=== PATIENT | male | born 1945 | race Caucasian/White ===

== ENCOUNTER 2019-08-21 01:57 | Outpatient (CLI) | payer MEDICARE, BC, SELFPAY ==
[2019-08-21 11:54] LABS: HCT 41.8 % (40.0-50.0); HGB 13.9 g/dL (13.5-17.5); Mean Corp. HGB Concentration 33.3 g/dL (32.0-36.0); Mean Corpuscular Hemoglobin 32.5 pg (27.0-33.0); Mean Corpuscular Volume 97.7 fL (80-95); Mean Platelet Volume 10.6 fL (8.0-11.0); Platelet Count 236 x1000/uL (130-400); RBC 4.28 m/cumm (4.50-6.00); White Blood Cell Count 7.67 k/cumm (4.4-10.8)
[2019-08-21 12:21] LABS: ALT 44 U/L (16-63); AST 25 U/L (15-37); Albumin 3.7 g/dL (3.4-5.0); Alkaline Phosphatase 69 U/L (46-116); Anion Gap 8.2 mmol/L (3-11); BUN 22 mg/dL (7-18); Bilirubin, Total 0.8 mg/dL (0.2-1.0); CO2 26.8 mmol/L (21.0-32.0); CREATININE 1.28 mg/dL (0.70-1.30); Calcium 8.9 mg/dL (8.5-10.1); Calculated LDL 160 mg/dL; Chloride 106 mmol/L (98-107); Cholesterol 223 mg/dL (50-200); Estimated GFR 54.79 (mL/min/1.73m2); Glucose 102 mg/dL (70-100); HDL Cholesterol 40 mg/dL (40-60); Potassium 4.6 mmol/L (3.5-5.1); Sodium 141 mmol/L (136-145); Triglyceride 115 mg/dL (30-150)
== END 2019-08-21 02:17 ==
PROVIDERS: PCP Family Medicine; Visit Provider Family Medicine
DX: I10 Essential (primary) hypertension (principal); E78.5 Hyperlipidemia, unspecified
CPT/HCPCS: 36415; 80053; 80061; 85027

== ENCOUNTER 2019-12-28 16:40 | Outpatient (CLI) | payer MEDICARE, BC, SELFPAY ==
--- NOTE | 2019-12-28 15:31 | DI.RAD_ITS ---
EXAM: XR CHEST 2V PA AND LATERAL INDICATION: COUGH R05. COMPARISON: No exams were available for comparison TECHNIQUE: 2D digital imaging was performed. FINDINGS: The lungs are not well inflated on the PA view but appear clear. The heart size is normal. No infil trate or effusion is seen. IMPRESSION: Negative chest x-ray DATA REPOSITORY: RADIATION DOSE DELIVERED:
== END 2019-12-28 17:00 ==
PROVIDERS: PCP Family Medicine; Visit Provider Internal Medicine
DX: R05 Cough (principal)
CPT/HCPCS: 71046

== ENCOUNTER 2020-08-15 04:08 | Outpatient (CLI) | payer MEDICARE, BC, SELFPAY ==
[2020-08-15 13:52] LABS: ALT 42 U/L (16-63); AST 28 U/L (15-37); Albumin 3.9 g/dL (3.4-5.0); Alkaline Phosphatase 63 U/L (46-116); Anion Gap 11.1 mmol/L (3-11); BUN 23 mg/dL (7-18); Bilirubin, Total 0.4 mg/dL (0.2-1.0); CO2 26.9 mmol/L (21.0-32.0); CREATININE 1.34 mg/dL (0.70-1.30); Calcium 9.3 mg/dL (8.5-10.1); Calculated LDL 181 mg/dL (<100); Chloride 105 mmol/L (98-107); Cholesterol 248 mg/dL (<200); Estimated GFR 51.83 (mL/min/1.73m2); Glucose 97 mg/dL (74-106); HDL Cholesterol 39 mg/dL (40-60); Potassium 4.6 mmol/L (3.5-5.1); Sodium 143 mmol/L (136-145); Total Protein 7.1 g/dL (6.4-8.2); Triglyceride 143 mg/dL (<150)
== END 2020-08-15 04:28 ==
PROVIDERS: PCP Family Medicine; Visit Provider Family Medicine
DX: E78.5 Hyperlipidemia, unspecified (principal); I10 Essential (primary) hypertension
CPT/HCPCS: 36415; 80053; 80061

== ENCOUNTER → 2020-10-10 07:50 | Outpatient (BNVA) | payer MEDICARE, BC, SELFPAY | PROVIDERS: PCP Family Medicine; Referring Provider Family Medicine; Visit Provider Student in an Organized Health Care Education/Training Program | DX: M65.322 Trigger finger, left index finger (principal) | CPT/HCPCS: 99203; 99214 ==

== ENCOUNTER 2020-10-26 05:59 | Day surgery (SDC) | payer MEDICARE, BC, SELFPAY ==
[2020-10-26 06:14] VITALS: BP 157/99; PULSE 89; RESP 16; TEMP 36.5; O2SAT 99
--- NOTE | 2020-10-26 07:18 | W.PM.DSUDISC ---
Discharge Plan Disposition Patient Disposition: HOME Condition: Good Discharge Details Reason For Visit: Left Index Finger Trigger Finger Attending Provider: John Anderson Primary Care Provider: Calos Mahoney Home Meds and New Rx's Prescriptions: No Action Shingrix gE Antigen Component 50 mcg suspension for reconstitution 50 mcg IM ONCE Qty: 1 RF: 0 omeprazole magnesium [Prilosec OTC] 20 mg tablet,delayed release (DR/EC) 20 mg PO DAILY Qty: 90 RF: 4 lisinopril [Zestril] 10 mg tablet 10 mg PO DAILY Qty: 90 RF: 4 desoximetasone [Topicort] 0.25 % cream 1 applic topical DAILY PRN (Reason: psoriasis) Qty: 60 RF: 3 ibuprofen 200 MG capsule 200 mg PO PRN RF: 0 Discharge Instructions Additional Instructions: You may take Tylenol (up to 3000mg total in one day) and Ibuprofen (up to 1800mg total in one day)as needed for pain. You may also apply ice for pain relief. Stand Alone Forms: Monica Colmenares Finger Release Referrals: John Anderson MD [ [facility] STAFF PHYSICIAN] - Activity:: Elevate Remove Dressings/Wound Care:: 48 hours Shower/Bathe:: 48 hours Diet:: As Tolerated Discharge Orders Discharge Orders: Discharge Order (Routine); Ordered 10/26/20 Ordered By: John Anderson DS: Diagnosis Discharge Diagnosis (1) Trigger finger, left index finger: Status: Acute
[2020-10-26] MEDS: Sodium Bicarbonate 50 MEQ/50 ML VIAL (07:34)
--- NOTE | 2020-10-26 09:40 | W.PM.OP ---
Date of service: 10/26/20 Time of Service: 07:40 Operative Note Operative Note DATE OF PROCEDURE: 10/26/20 PRE-OP DIAGNOSIS: Left Index Finger Trigger Finger POST-OP DIAGNOSIS: same PROCEDURE: Trigger Finger Release - Left Index Finger SURGEON: John Anderson ANESTHESIA: local PATHOLOGY: none sent COMPLICATIONS: None Patient was transported to: same day Patient's condition: stable Indications: I have seen Frank in clinic for symptoms of a trigger finger. The catching, clicking, locking, and pain limited function. The diagnosis of trigger finger was evident. The symptoms had not responded to conservative measures. I discussed trigger finger release with the patient. I reviewed the risks of the procedure to include, but not limited to, bleeding, infection, pain, stiffness, incomplete release, damage to nerves or vessels, continued catching, recurrence. Despite these risks, the patient elected to proceed. Findings: There was a tightened A1 niecy which was released. The flexor tendons were inspected and the patient was able to move the finger without any catching, clicking, or locking. Procedure Description: Frank was greeted in the preoperative holding area where the correct side was identified and marked. The consent was reviewed with the patient and signed. All questions were answered. Frank was taken back to the operating room. The patient was placed into the supine position on the operating room table with the left arm on an arm board. All bony prominences were well padded. No prophylactic antibiotics were administered since this was a clean, elective hand surgical case. The left arm was then prepped with Chloraprep and draped in a standard fashion with stockinette and extremity drape. A timeout to confirm correct identity, side and site, procedure, allergies, anesthesia, and medical concerns was performed. The surgical site was marked as a longitudinal incision directly over the A1 niecy of the involved digit. This was confirmed with palpation during finger flexion. This area, overlying the metacarpal head, was then anesthetized with 1% Lidocaine. The patient tolerated this well and once the anesthetic had setup, the procedure began. A longitudinal incision was made through skin only, approximately 1cm. The deep tissues were dissected bluntly. Once the A1 niecy and flexor tendons were identified the soft tissue including neurovascular structures were retracted medially and laterally. There were no crossing structures over the A1 niecy. The proximal edge of the niecy was identified and the niecy was incised with tenotomy scissors. There was a release of the tendons once this was fully released. The tendons were then removed from the wound and inspected. Excess synovium was resected. The tendons were then returned and the patient was asked to move the finger into deep flexion and back to extension. There was no recreation of the pre-operative symptoms. The hand was then once more inspected for any A0 niecy or area of possible constriction. The wound was then irrigated and the skin was closed with a 4-0 Nylon. This was dressed with gauze and a Conform dressing. The patient tolerated the procedure well and was returned to the Same Day Surgery area in a stable condition suffering no known complication.
== END 2020-10-26 08:05 | disposition home or self-care (01) ==
PROVIDERS: PCP Family Medicine; Visit Provider Student in an Organized Health Care Education/Training Program
PROC: (CPT 26055; principal; 2020-10-26 07:30)
DX: M65.322 Trigger finger, left index finger (principal)
CPT/HCPCS: 26055

== ENCOUNTER 2021-08-25 09:02 | Outpatient (CLI) | payer MEDICARE, BC, SELFPAY ==
[2021-08-25 13:14] LABS: Anion Gap 7.1 mmol/L (3-11); BUN 20 mg/dL (7-18); CO2 29.9 mmol/L (21.0-32.0); CREATININE 1.3 mg/dL (0.70-1.30); Chloride 106 mmol/L (98-107); Estimated GFR 53.53 (mL/min/1.73m2); Glucose 85 mg/dL (74-106); Potassium 4.9 mmol/L (3.5-5.1); Sodium 143 mmol/L (136-145)
== END 2021-08-25 09:03 | disposition home or self-care (01) ==
LOC: LOS 09:02
PROVIDERS: PCP Family Medicine; Visit Provider Family Medicine
DX: I10 Essential (primary) hypertension (principal)
CPT/HCPCS: 36415; 80048

== ENCOUNTER 2022-09-03 03:06 | Outpatient (CLI) | payer MEDICARE, BC, SELFPAY ==
[2022-09-03 11:05] LABS: Anion Gap 8.1 mmol/L (3-11); BUN 19 mg/dL (7-18); CO2 27.9 mmol/L (21.0-32.0); CREATININE 1.3 mg/dL (0.70-1.30); Calcium 9.1 mg/dL (8.5-10.1); Calculated LDL 166 mg/dL (<100); Chloride 103 mmol/L (98-107); Cholesterol 231 mg/dL (<200); Estimated GFR 56.23 (mL/min/1.73m2); Glucose 89 mg/dL (74-106); HDL Cholesterol 42 mg/dL (40-60); Potassium 4.2 mmol/L (3.5-5.1); Sodium 139 mmol/L (136-145); Triglyceride 118 mg/dL (<150)
== END 2022-09-03 03:07 | disposition home or self-care (01) ==
LOC: LOS 03:06
PROVIDERS: PCP Family Medicine; Visit Provider Family Medicine
DX: I10 Essential (primary) hypertension (principal); E78.5 Hyperlipidemia, unspecified; Z13.6 Encounter for screening for cardiovascular disorders
CPT/HCPCS: 36415; 80048; 80061

== ENCOUNTER 2022-11-01 11:02 | Outpatient (CLI) | payer MEDICARE, BC, SELFPAY ==
--- NOTE | 2022-11-01 10:30 | DI.RAD_ITS ---
Exam(s) XR HAND RT COMPLETE EXAM: XR HAND RT COMPLETE CLINICAL HISTORY: limited motion and weakness of thumb. TECHNIQUE: 2D digital imaging was performed. COMPARISON: No exams were available for comparison FINDINGS: 3 views No evidence of acute fracture. Main finding here is at the DIP joint 2nd-finger where there is asymm etric lateral joint space narrowing mild subluxation. Other DIP joints appear unremarkable. Degener ative subarticular cyst is noted in lateral base of the middle phalanx of the 3rd-middle finger. Oth er PIP joints appear unremarkable as do the joints of the thumb including the 1st carpometacarpal waleska nt. Metacarpophalangeal joints appear unremarkable. IMPRESSION: Degenerative changes at the DIP joint of 2nd-index finger. DATA REPOSITORY: RADIATION DOSE DELIVERED:
== END 2022-11-01 11:03 | disposition home or self-care (01) ==
LOC: DIORS 11:02
PROVIDERS: PCP Family Medicine; Referring Provider Family Medicine; Visit Provider Student in an Organized Health Care Education/Training Program
DX: R29.898 Other symptoms and signs involving the musculoskeletal system (principal)
CPT/HCPCS: 99213; 73130

== ENCOUNTER → 2022-11-19 13:07 | Outpatient (BNVA) | payer MEDICARE, BC, SELFPAY | PROVIDERS: PCP Family Medicine; Referring Provider Student in an Organized Health Care Education/Training Program; Visit Provider Nurse Practitioner Adult Health | DX: G62.9 Polyneuropathy, unspecified (principal); G56.03 Carpal tunnel syndrome, bilateral upper limbs; G56.23 Lesion of ulnar nerve, bilateral upper limbs | CPT/HCPCS: 95885; 95911; 99203; 99214 ==

== ENCOUNTER 2022-11-23 01:06 | Outpatient (CLI) | payer MEDICARE, BC, SELFPAY ==
[2022-11-23 12:31] LABS: Hemoglobin A1C 5.8 % (<5.7)
[2022-11-23 13:01] LABS: TSH 2.14 uIU/mL (0.36-3.74); Vitamin B12 236 pg/mL (193-986)
[2022-11-26 16:39] LABS: Albumin g/dL 4.1 g/dL (3.6-5.2)
== END 2022-11-23 01:07 | disposition home or self-care (01) ==
LOC: LOS 01:07
PROVIDERS: PCP Family Medicine; Visit Provider Nurse Practitioner Adult Health
DX: I10 Essential (primary) hypertension (principal); G62.9 Polyneuropathy, unspecified; R20.0 Anesthesia of skin; R79.89 Other specified abnormal findings of blood chemistry
CPT/HCPCS: 36415; 82607; 83036; 84165; 84443

== ENCOUNTER → 2022-12-03 10:25 | Outpatient (BNVA) | payer MEDICARE, BC, SELFPAY | PROVIDERS: PCP Family Medicine; Referring Provider Family Medicine; Visit Provider Student in an Organized Health Care Education/Training Program | DX: G56.03 Carpal tunnel syndrome, bilateral upper limbs (principal); G56.23 Lesion of ulnar nerve, bilateral upper limbs; R29.898 Other symptoms and signs involving the musculoskeletal system | CPT/HCPCS: 99213 ==

== ENCOUNTER 2022-12-13 00:15 | Outpatient (CLI) | payer MEDICARE, BC, SELFPAY ==
--- NOTE | 2022-12-13 07:30 | DI.MRI_ITS ---
Exam(s) MR CERVICAL SPINE WO EXAM: MR CERVICAL SPINE WO CLINICAL HISTORY: bilateral hand atrophy and weakness, abnormal EMG,r94.131 TECHNIQUE: Multiplanar multisequence MRI of the cervical spine was performed without intravenous con trast. COMPARISON: No exams were available for comparison FINDINGS: CERVICOMEDULLARY JUNCTION: Intact with no evidence of cerebellar tonsillar ectopia. No obvious abnor mality of the odontoid process. No evidence of Chiari 1 malformation. CERVICAL SPINAL CORD: There is no abnormal signal in the cervical spinal cord and no evidence of foca l cord atrophy nor focal cord swelling. OSSEOUS:There is straightening with slight reversal of the normal curvature of the cervical spine. N o significant osseous lesions. No fractures. INDIVIDUAL LEVELS: C2-3: No disc herniation nor central canal stenosis. No foraminal stenosis. No facet arthropathy. C3-4: There is broad symmetrical annular bulging and mild posterior bony ridging. This effaces the a nterior aspect of the thecal sac with some flattening of the cervical cord. The AP measurement of th e canal at this level is 7 millimeters. There is mild-moderate central canal stenosis. There is no facet arthropathy on the right side. There is moderate facet arthropathy on the left side. There is significant left-sided foraminal stenosis. Minimal right-sided narrowing. C4-5: Mild decreased disc height. There is mild annular bulging. There is a superimposed left parac entral disc herniation which extends posteriorly 4 millimeters and is approximately 8 millimeters wid e. This significantly indents the thecal sac and spinal cord. This results in central canal stenosi s. AP measurement of the canal at this level is 6 millimeters. There is no abnormal signal in the s esau cord.Facet joints at this level to exhibit no significant findings in the right side and modera te degenerative changes on the left side. There is moderate foraminal stenosis on the left side. Mi ld foraminal stenosis on the right side C5-6: This level exhibits chronic advanced disc space narrowing. Anterior osseous lipping. Bilatera l Luschka joint osteophytes. Broad but relatively symmetrical annular bulging. This effaces the ant erior aspect of the thecal sac and there is some flattening of the spinal cord. AP measurement of th e canal at this level is 8 millimeters. There is mild-moderate facet arthropathy on both sides at th is level. Moderate bilateral foraminal stenosis. C6-7: This level exhibits normal disc height and preserved hydration signal. There is no disc hernia tion nor central canal stenosis at this level. Central canal dimensions are lower normal. There is also no significant facet arthropathy at this level and there is no significant foraminal stenosis at this level. C7-T1: No disc herniation nor central canal stenosis. No facet arthropathy.No foraminal stenosis. IMPRESSION: 1. There are multilevel findings as discussed individually above. There is central spinal canal shari nosis at C3-4, C4-5, and C5-6 levels and there is a left paracentral disc protrusion at C4-5 level. Bilateral Luschka joint osteophytes noted at C 5-6. There is an element of multilevel asymmetric for aminal stenosis, this mostly related to asymmetric facet arthropathy. There are changes of left face t arthropathy on the left side at multiple levels with relatively normal appearing facet joints on th e right side at these levels. 2. No abnormal signal in the cervical spinal cord. No evidence of side syrinx. 3. There is straightening of the normal cervical curvature which is most probably related to chronic muscle spasm, given the above findings. DATA REPOSITORY:
== END 2022-12-13 00:35 ==
LOC: DI 00:16
PROVIDERS: PCP Family Medicine; Visit Provider Nurse Practitioner Adult Health
DX: M48.02 Spinal stenosis, cervical region (principal)
CPT/HCPCS: 72141

== ENCOUNTER → 2022-12-18 08:30 | Outpatient (BNVA) | payer MEDICARE, BC, SELFPAY | PROVIDERS: PCP Family Medicine; Referring Provider Family Medicine; Visit Provider Psychiatry & Neurology Neurology | DX: M48.02 Spinal stenosis, cervical region (principal); G56.03 Carpal tunnel syndrome, bilateral upper limbs; G56.23 Lesion of ulnar nerve, bilateral upper limbs; R29.898 Other symptoms and signs involving the musculoskeletal system; G62.9 Polyneuropathy, unspecified; E53.8 Deficiency of other specified B group vitamins | CPT/HCPCS: 99214 ==

== ENCOUNTER 2023-01-22 12:07 | Day surgery (SDC) | payer MEDICARE, BC, SELFPAY ==
[2023-01-22] VITALS (8 sets, daily range): BP systolic 94–143; BP diastolic 43–82; PULSE 70–81; RESP 16–19; TEMP 36.2–36.7; O2SAT 92–99; BMI 31.9
--- NOTE | 2023-01-22 09:23 | W.PM.DSUDISC ---
Date of service: 01/22/23 Time of Service: 09:28 Discharge Plan Disposition Patient Disposition: Home Condition: Good Discharge Details Reason For Visit: Right carpal and cubital tunnel syndromes Attending Provider: John Anderson Primary Care Provider: Jasmyne Castillo Home Meds and New Rx's Prescriptions: New acetaminophen 500 mg tablet 500 mg PO Q6H PRN (Reason: pain) Qty: 60 2RF ibuprofen 600 mg tablet 600 mg PO TID PRN (Reason: pain) Qty: 60 0RF hydrocodone-acetaminophen 5-325 mg tablet 1 tab PO Q6H PRN (Reason: severe pain) Qty: 6 0RF Rx Instructions: Take one tablet up to every 6 hours as needed for severe postoperative pain Continued ezetimibe [Zetia] 10 mg tablet 10 mg PO DAILY Qty: 90 3RF omeprazole 20 mg capsule,delayed release(DR/EC) 20 mg PO DAILY PRN cyanocobalamin (vitamin B-12) 1,000 mcg tablet 1,000 mcg PO DAILY lisinopril [Zestril] 10 mg tablet 10 mg PO DAILY Qty: 90 3RF Discontinued ibuprofen 200 MG capsule 200 mg PO PRN Discharge Instructions Additional Instructions: Carpal and Cubital Tunnel Decompression Discharge Instructions Activity: You should stay in the sling for the first 2 weeks. You may come out of the sling for gentle motion and hygiene but should largely remain in the sling to allow the incision site to heal. Gentle motion of the elbow, hand, wrist, and fingers is okay and encouraged after the first few days, but no repetitive activities nor heavy lifting. You may apply ice. Medications: - You should take Tylenol and Ibuprofen around the clock. - You have been prescribed Hydrocodone for breakthrough pain. Dressings: - The initial surgical dressing should stay in place for 3 days. It may then be removed and kept clean and dry. You should cover with a light gauze dressing. - You may shower after 3 days and get the wound wet. Follow-up: 10 days Equipment/Supplies: Sling Remove Dressings/Wound Care:: 72 hours Shower/Bathe:: 72 hours Diet:: As Tolerated Discharge Orders Discharge Orders: Discharge Order (Routine); Ordered 01/22/23 Ordered By: Ann Mcghee
[2023-01-22] MEDS: Lactated Ringers 1,000 ML 80 ML IV (13:15)
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
[2023-01-22] MEDS: ceFAZolin 2 GM/50 ML BAG IVPB (15:01)
[2023-01-22] MEDS: Bupivacaine 0.25% Pres-Free W/EPI 30 ML VIAL (15:11)
--- NOTE | 2023-01-22 16:17 | W.ANESPOSTOP ---
Postoperative Evaluation Date, Time and Location Date Performed: 01/22/23 Time Performed: 16:17 Patient Location: PACU Vital Signs Most Recent Imported Vital Signs: Most Recent Vital Signs Temp Pulse Resp BP Pulse Ox 36.7 C 76 19 139/61 93 01/22/23 16:00 01/22/23 16:10 01/22/23 16:10 01/22/23 16:10 01/22/23 16:10 Pain Score Most Recent Pain Score: Most Recent Pain Score Pain Level 0 01/22/23 16:10 Assessment Mental Status: Awake (Alert & Oriented to Patient Baseline) Airway and Respiratory Function: Patent airway with normal (patient baseline) respiratory exam Cardiovascular Function: Hemodynamically Stable Hydration Status: Adequately Hydrated Nausea & Vomiting: No Nausea or Vomiting Pain: Pain is tolerable per patient Peripheral Nerve Block: Patient did not receive a nerve block
--- NOTE | 2023-01-22 16:18 | W.PM.OP ---
Date of service: 01/22/23 Time of Service: 15:35 Operative Note Operative Note DATE OF PROCEDURE: 01/22/23 PRE-OP DIAGNOSIS: Right carpal Tunnel and Right Cubital Tunnel Syndrome POST-OP DIAGNOSIS: same PROCEDURE: Right Endoscopic Carpal Tunnel Release and Right Cubital Tunnel Decompression SURGEON: John Anderson TRAY DELIVERY AIDE: Ann Mcghee ANESTHESIA TYPE: General LMA/ETT Refer to Anesthesia Record ESTIMATED BLOOD LOSS: 5 PATHOLOGY: none sent TOURNIQUET TIME: 25 COMPLICATIONS: None Patient was transported to: PACU Patient's condition: stable Indications: Frank is a 77-year-old male who has had symptoms of carpal and cubital tunnel syndrome. Nonoperative treatment options had been trialed. Nerve conduction studies identified the carpal and cubital tunnel as the point of compression. Given failure of nonoperative treatments and persistent symptoms, I offered operative intervention. I reviewed the technical details of a carpal tunnel release and cubital tunnel decompression with possible anterior subcutaneous transposition. I reviewed the risk of the procedure to include bleeding, infection, pain, stiffness, nerve instability, damage to superficial nerves, persistent symptoms, and incomplete release. Despite these risks, the patient elected to proceed. Findings: The carpal tunnel was release with a standard endoscopic technique without difficulty and excellent visualization. There was a tightened cubital tunnel. The ulnar nerve was release from the first motor branch distally through the [place] proximally. It was exquisitely tight just distal to the medial condyle within the fascia of the FCU muscle bellies. Procedure Description: Frank was greeted in the preoperative holding area where the correct side was identified and marked. The consent was reviewed with the patient and signed. The history and physical was updated. All questions were answered. He was taken back to the operating room. The patient was placed into the supine position on the operating room table with the right arm on an arm board. A nonsterile tourniquet was placed high onto the arm, into the axilla. All bony prominences were well padded. Prophylactic antibiotics in the form of Cefazolin were administered. The right arm was then prepped with Chloraprep and draped in a standard fashion with stockinette and extremity drape. A timeout to confirm correct identity, side and site, procedure, allergies, anesthesia, and medical concerns was performed. The surgical site was marked in the volar wrist creases in line with the radial border of the fourth ray. This area was anesthetized with approximately 6cc of 1% Lidocaine with Epinephrine. The surgical site about the medial elbow was drawn on the skin just posterior to the medial epicondyle borders. The planned surgical field was anesthetized with 1% Lidocaine with Epinephrine. The limb was then exsanguinated with an Esmarch. Starting with the carpal tunnel, the skin was incised with a 15 blade, approximately 1cm. The skin only was cut and the deeper tissue was dissected bluntly with a tenotomy scissor, avoiding passing nerve and venous structures. The fascia was penetrated and opened bluntly. A two-prong skin hook was placed under this proximal fascial edge. A series of hamate finders were used to identify and dilate the carpal tunnel. Synovial elevator was used to free synovial attachments to the underside of the transverse carpal ligament. My thumb was kept in the palm to perfecto the distal extent of the carpal tunnel and correctly position the hand. The Microaire endoscope was inserted without difficulty and without resistance. Excellent visualization showed horizontally running fibers of the transverse carpal ligament (TCL). The distal extent of the TCL was visualized and the end of the scope palpated with the thumb. The blade was elevated and withdrawn from distal to proximal. The TCL was split into two flaps. The endoscope was reinserted to confirm complete release and any remnant ligament was incised. The scope was withdrawn and the proximal aspect of the carpal tunnel was grossly inspected and appeared release with the median nerve visible. The antebrachial fascia at the level of the wrist was then freed from the overlying skin and then the underlying median nerve with blunt dissection. This was transected longitudinally for about 3cm proximal to the wrist incision. The wound was then irrigated with easy flow of irrigant distally and proximally. The incision was closed with a single 4-0 Nylon suture. . Attention was then turned to the cubital tunnel release. The skin of the medial elbow was incised only with the elbow in some flexion and on a bump. The deep tissue and subcutaneous fat was dissected with a tenotomy scissors trying to protect any branches of the medial antebrachial cutaneous nerve. Any branches that were identified were retracted out of the way. The ulnar nerve was palpated and identified. A small window into the cubital tunnel, sheath overlying the nerve, was created and the nerve was able to be palpated with the [place]. A Metzenbaum scissor was then used to open up the sheath starting with New's ligament. I then worked distal over the ulnar nerve releasing any constraints against the nerve all the way to the fascia of the FCU muscle belly. This FCU fascia was quite dense and adherent to the nerve. Once this was released there was a notable deformity of the nerve at this level. Additionally, this muscle belly was bluntly all the way down to the first motor branch of the ulnar nerve and the overlying fascia was incised until there was no restriction. Likewise starting there at the medial epicondyle, I proceeded to work proximally to release any constraints over the ulnar nerve. This was taken all the way to the arcade of [place]. The medial intermuscular septum was also palpated and any sharp edges against the ulnar nerve were resected and released. After fully releasing the nerve it was inspected visually. I was also able to palpate the nerve fully and reach one finger up into the proximal and distal aspects to make sure there were no constraints against the nerve. A freer elevator was also used to slide easily against the ulnar nerve without any points of constriction. The arm was then taken through range of motion. The ulnar nerve did not sublux/dislocate out of its groove behind the lateral epicondyle. Therefore, no transposition was performed. The tourniquet was then deflated. Any areas of bleeding were cauterized with bipolar electrocautery. The wound was thoroughly irrigated. The deep tissue was closed with a 3-0 Vicryl. The skin was closed with a 4-0 nylon. The wounds were dressed with Xeroform, 4 x 4's, ABD, Kerlix and an Danie wrap. Frank was placed into a sling. He was transferred back to the PACU in a stable condition.
== END 2023-01-22 17:15 | disposition home or self-care (01) ==
LOC: SUR 12:08
PROVIDERS: PCP Family Medicine; Visit Provider Student in an Organized Health Care Education/Training Program
PROC: 01N54ZZ Release Median Nerve, Percutaneous Endoscopic Approach (ICD-10-PCS; CPT 29848; principal; 2023-01-22 15:15)
PROC: (CPT 64718; 2023-01-22 15:15)
DX: G56.01 Carpal tunnel syndrome, right upper limb (principal); G56.21 Lesion of ulnar nerve, right upper limb
CPT/HCPCS: 64718; 29848; J0690; J1100; J1885; J2405; J2704

== ENCOUNTER → 2023-01-31 08:40 | Outpatient (BNVA) | payer MEDICARE, BC, SELFPAY | PROVIDERS: PCP Family Medicine; Referring Provider Family Medicine; Visit Provider Student in an Organized Health Care Education/Training Program | DX: Z47.89 Encounter for other orthopedic aftercare (principal); M62.541 Muscle wasting and atrophy, not elsewhere classified, right hand; G56.21 Lesion of ulnar nerve, right upper limb ==

== ENCOUNTER 2023-05-02 10:43 | Emergency (ER) | payer MEDICARE, BC, SELFPAY ==
[2023-05-02 11:06] VITALS: BP 122/79; PULSE 86; RESP 20; TEMP 37; O2SAT 99
--- NOTE | 2023-05-02 12:10 | DI.RAD_ITS ---
Exam(s) XR THUMB RT EXAM: XR THUMB RT CLINICAL HISTORY: table saw. TECHNIQUE: 2D digital imaging was performed. Three views. COMPARISON: CR XR HAND RT COMPLETE from 11/01/2022 FINDINGS: BONES: Fracture of the tuft of the thumb. No bony destructive lesion is seen. JOINTS: No dislocation present. Degenerative changes again noted at the distal interphalangeal joint of the 2nd finger. SOFT TISSUE: Soft tissue defect at the distal thumb. No foreign body. IMPRESSION: Tuft fracture with overlying soft tissue wound. DATA REPOSITORY: RADIATION DOSE DELIVERED:
[2023-05-02] MEDS: Cephalexin 500 MG CAP PO (13:25)
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
== END 2023-05-02 13:25 | disposition home or self-care (01) ==
PROVIDERS: Emergency Provider Physician Assistant; PCP Family Medicine
DX: S62.501B Fracture of unspecified phalanx of right thumb, initial encounter for open fracture (principal); W29.3XXA Contact with powered garden and outdoor hand tools and machinery, initial encounter
CPT/HCPCS: 12001; 90471; 99284; 73140

== ENCOUNTER 2023-05-07 14:09 | Outpatient (CLI) | payer MEDICARE, BC, SELFPAY ==
--- NOTE | 2023-05-07 14:00 | DI.RAD_ITS ---
Exam(s) XR THUMB RT EXAM: XR THUMB RT CLINICAL HISTORY: F/U FRACTURE. TECHNIQUE: 2D digital imaging was performed. COMPARISON: CR XR THUMB RT from 05/02/2023 FINDINGS: 3 views There is again noted soft tissue avulsion of skin over the distal phalanx of the thumb. The previous ly described tuft fracture is less evident on the present study. There is a 1-2 millimeter calcific density in the soft tissues at this area again noted but the larger fracture fragment appears less ev ident. Interphalangeal joint of the thumb is intact as is the MCP joint. IMPRESSION: As above. DATA REPOSITORY: RADIATION DOSE DELIVERED:
== END 2023-05-07 14:10 | disposition home or self-care (01) ==
LOC: DIORS 14:09
PROVIDERS: PCP Family Medicine; Referring Provider Family Medicine; Visit Provider Physician Assistant
DX: S62.501B Fracture of unspecified phalanx of right thumb, initial encounter for open fracture (principal); W31.2XXA Contact with powered woodworking and forming machines, initial encounter
CPT/HCPCS: 99213; 73140

== ENCOUNTER → 2023-05-13 14:07 | Outpatient (BNVA) | payer MEDICARE, BC, SELFPAY | PROVIDERS: PCP Family Medicine; Referring Provider Family Medicine | DX: W31.2XXA Contact with powered woodworking and forming machines, initial encounter (principal); Z48.02 Encounter for removal of sutures; S62.501B Fracture of unspecified phalanx of right thumb, initial encounter for open fracture | CPT/HCPCS: 99213 ==

== ENCOUNTER → 2023-05-20 08:25 | Outpatient (BNVA) | payer MEDICARE, BC, SELFPAY | PROVIDERS: PCP Family Medicine; Referring Provider Family Medicine; Visit Provider Student in an Organized Health Care Education/Training Program | DX: S62.501D Fracture of unspecified phalanx of right thumb, subsequent encounter for fracture with routine healing (principal); W31.2XXD Contact with powered woodworking and forming machines, subsequent encounter | CPT/HCPCS: 99213 ==

== ENCOUNTER 2024-01-03 01:22 | Outpatient (CLI) | payer MEDICARE, BC, SELFPAY ==
[2024-01-03 12:45] LABS: Anion Gap 9.1 mmol/L (3-11); BUN 25 mg/dL (7-18); CO2 28.9 mmol/L (21.0-32.0); CREATININE 1.4 mg/dL (0.70-1.30); Calcium 9.2 mg/dL (8.5-10.1); Calculated LDL 114 mg/dL (<100); Chloride 105 mmol/L (98-107); Cholesterol 183 mg/dL (<200); Estimated GFR 50.81 (mL/min/1.73m2); Glucose 93 mg/dL (74-106); HDL Cholesterol 43 mg/dL (40-60); Potassium 4.2 mmol/L (3.5-5.1); Sodium 143 mmol/L (136-145); Triglyceride 131 mg/dL (<150); Vitamin B12 1098 pg/mL (193-986)
== END 2024-01-03 01:23 | disposition home or self-care (01) ==
LOC: LOS 01:22
PROVIDERS: PCP Family Medicine; Visit Provider Family Medicine
DX: I10 Essential (primary) hypertension (principal); E78.5 Hyperlipidemia, unspecified; G62.9 Polyneuropathy, unspecified; Z79.899 Other long term (current) drug therapy
CPT/HCPCS: 36415; 80048; 80061; 82607

== ENCOUNTER → 2024-04-09 14:12 | Outpatient (BNVA) | payer MEDICARE, BC, SELFPAY | PROVIDERS: PCP Family Medicine; Referring Provider Family Medicine; Visit Provider Physical Therapy Assistant | DX: Z12.11 Encounter for screening for malignant neoplasm of colon (principal) ==

== ENCOUNTER 2024-05-04 06:03 | Day surgery (SDC) | payer MEDICARE, BC, SELFPAY ==
--- NOTE | 2024-05-03 11:36 | W.PM.DSUDISC ---
Date of service: 05/04/24 Time of Service: 07:47 Discharge Plan Disposition Patient Disposition: Home Condition: Good Discharge Details Reason For Visit: screening colonoscopy Attending Provider: Karel Sanon Primary Care Provider: Jasmyne Castillo Home Meds and New Rx's Prescriptions: Continued ezetimibe [Zetia] 10 mg tablet 10 mg PO DAILY Qty: 90 3RF omeprazole 20 mg capsule,delayed release(DR/EC) 20 mg PO DAILY PRN cyanocobalamin (vitamin B-12) 1,000 mcg tablet 1,000 mcg PO DAILY lisinopril [Zestril] 10 mg tablet 10 mg PO DAILY Qty: 90 3RF ibuprofen 600 mg tablet 600 mg PO TID PRN (Reason: pain) Qty: 60 0RF Discontinued bisacodyl [Dulcolax (bisacodyl)] 5 mg tablet,delayed release (DR/EC) 5 mg PO ONCE Qty: 4 0RF Rx Instructions: Take per colonoscopy instructions provided by ordering providers office polyethylene glycol 3350 17 gram/dose powder 17 g PO ONCE Qty: 238 0RF Rx Instructions: Take per colonoscopy instructions provided by ordering providers office Discharge Instructions Additional Instructions: Frank, we were able to complete your colonoscopy today without any difficulty. Your prep was excellent and I could see everything fine. The colonoscopy was totally normal. As we talked about beforehand, this test covers you for 10 years. In that regards, you do not need to plan for any more screening colonoscopies. If you need anything at all, or have any questions, please do not hesitate to let us know. 1. If tolerated, consume a soft, low fiber diet for 1-2 days. 2[address] Do not drive, drink alcohol, operate machinery, make critical decisions, or do activities that require coordination or balance for 24 hours. 3. Because air was put into your colon during the procedure, expelling air from your rectum (passing gas or farting) is normal. 4. You may not have a bowel movement for 1-3 days because of the colonoscopy prep. This is normal. 5. Go directly to the emergency room if you notice any of the following: Develop chills (warm to touch), or if you have a thermometer and your temperature is above 101 Difficulty breathing or difficultly swallowing Persistent vomiting Severe abdominal pain, other than gas cramps Severe chest pain Black, tarry stools Any bleeding ? exceeding one tablespoon 6. Call your physician if the site where your intravenous was started becomes red, swollen, painful, and warm to touch. 7. Your physician has reviewed your pre-procedure medications. Please continue to take those medications as previously ordered. You will be given specific information/education regarding any changes to your medications before leaving. Activity:: Activity as Tolerated Diet:: As Tolerated Discharge Orders Discharge Orders: Discharge Order (Routine); Ordered 05/03/24 Ordered By: Karel Sanon DS: Diagnosis Discharge Diagnosis (1) Encounter for screening colonoscopy: Status: Acute Asessment and Plan: Negative screening colonoscopy
--- NOTE | 2024-05-03 11:42 | W.COLOREPORT ---
Date of service: 05/04/24 Time of Service: 07:49 Colonoscopy Report Date of procedure: 05/04/24 Pre-op diagnosis general: screening colonoscopy Procedure: Negative screening colonoscopy Surgeon: Karel Sanon Anesthesia Type: General:No Airway Estimated blood loss (mL): 0 Pathology: none sent Complications: None Disposition: same day Indications: Frank is an 78 year old manw ho needs his next screening colonoscopy Prep: Miralax/Dulcolax Procedure Start Time: 07:32 Procedure End Time: 07:43 Retraction Time: 5 Findings: Negative screening colonoscopy Procedure Description: After the induction of anesthesia, and with the patient in left lateral decubitus position, I began by performing an external anorectal exam.? Perineum and skin were normal, as was the anal verge.? There was no evidence of external hemorrhoids.? Next, I performed a digital rectal exam.? I did not appreciate any abnormal findings.? Next, I advanced a colonoscope into the rectal vault.? I performed retroflexion.? This appeared normal.? Using insufflation, I then advanced the colonoscope beyond the rectal folds and into the sigmoid colon before advancing towards the cecum.? The quality of the prep was excellent.? The scope was noted to be in the cecum by identification of the ileocecal valve and appendiceal orifice.? I then began withdrawing the colonoscope using repeated irrigation as necessary for full evaluation of the colonic mucosa. ?Once the scope was withdrawn to the level of the rectum, great care was taken to examine portions of the rectal folds.? I did not see any signs of tumors, polyps, or any other worrisome pathology. Finally, the scope was withdrawn and the patient was brought to the same-day surgery recovery unit as the anesthetic wore off. ?The findings and instructions were shared with the patient prior to discharge. [place] Bowel Prep [place] Bowel Prep Right Colon: 3 Left Colon: 3 Transverse Colon: 3 Total Score: 9
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
[2024-05-04 06:15] VITALS: BP 107/73; PULSE 80; RESP 18; TEMP 36.5; O2SAT 98
[2024-05-04] MEDS: Lactated Ringers 1,000 ML 80 ML IV (06:46)
[2024-05-04 07:08] VITALS: BMI 28.7
[2024-05-04 07:50] VITALS: BP 112/59; PULSE 85; RESP 16; TEMP 36.3; O2SAT 97
--- NOTE | 2024-05-04 07:54 | W.ANESPOSTOP ---
Postoperative Evaluation Date, Time and Location Date Performed: 05/04/24 Time Performed: 07:54 Patient Location: Day Surgery Unit Vital Signs Most Recent Imported Vital Signs: Most Recent Vital Signs Temp Pulse Resp BP Pulse Ox 36.3 C L 85 16 112/59 L 97 05/04/24 07:50 05/04/24 07:50 05/04/24 07:50 05/04/24 07:50 05/04/24 07:50 Pain Score Most Recent Pain Score: Most Recent Pain Score Pain Level 0 05/04/24 07:50 Assessment Mental Status: Awake (Alert & Oriented to Patient Baseline) Airway and Respiratory Function: Patent airway with normal (patient baseline) respiratory exam Cardiovascular Function: Hemodynamically Stable Hydration Status: Adequately Hydrated Nausea & Vomiting: No Nausea or Vomiting Pain: Pt. Denies Any Pain Peripheral Nerve Block: Patient did not receive a nerve block Postoperative Comments:: Discussed aspiration. We talked about how the clear green fluid that was suctioned form his mouth could potentially be an aspiration. Also that he did have a laryngospasm and that hopefully was protective, but that his voice will be hoarse for a little bit. He was encouraged to follow up with us if he has any questions or concerns. Also to present to the ED if he has any shortness of breath, fever, chills, or any symptoms that are concerning to him.
[2024-05-04 08:17] VITALS: BP 116/78; PULSE 69; RESP 18; TEMP 36.4; O2SAT 97
== END 2024-05-04 08:33 | disposition home or self-care (01) ==
LOC: SUR 06:03
PROVIDERS: PCP Family Medicine; Visit Provider Surgery
PROC: 0DJD8ZZ Inspection of Lower Intestinal Tract, Via Natural or Artificial Opening Endoscopic (ICD-10-PCS; CPT 45378; principal; 2024-05-04 07:30)
DX: Z12.11 Encounter for screening for malignant neoplasm of colon (principal); I10 Essential (primary) hypertension
CPT/HCPCS: G0121; J2704

== ENCOUNTER 2024-05-13 11:32 | Outpatient (CLI) | payer MEDICARE, BC, SELFPAY ==
--- NOTE | 2024-05-13 08:00 | DI.RAD_ITS ---
Exam(s) XR SHOULDER LT COMPLETE 2+V EXAM: XR SHOULDER LT COMPLETE 2+V CLINICAL HISTORY: LEFT SHOULDER PAIN. TECHNIQUE: 2D digital imaging was performed. COMPARISON: No exams were available for comparison FINDINGS: 3 views No evidence of fracture or dislocation nor abnormal soft tissue calcifications in the subacromial spa ce. There is advanced degenerative [id number] narrowing of the glenohumeral joint and there is no osteo phyte on the inferior articular surface of the humeral head. Also noted is in addition dense coming off of the scapula measuring approximately 3 x 1.8 cm. Only seen on frontal images. There are degen erative changes in the AC joint noted. 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 Also degenerative changes in the AC joint. 3 x 1.8 cm bone addition density off the the scapula. Recommend further evaluation with additional v iews or CT scan. DATA REPOSITORY: RADIATION DOSE DELIVERED:
== END 2024-05-13 11:33 | disposition home or self-care (01) ==
LOC: DIORS 11:32
PROVIDERS: PCP Family Medicine; Referring Provider Family Medicine; Visit Provider Student in an Organized Health Care Education/Training Program
DX: M19.012 Primary osteoarthritis, left shoulder
CPT/HCPCS: 99213; 73030

== ENCOUNTER → 2024-12-14 08:40 | Outpatient (BNVA) | payer MEDICARE, BC, SELFPAY | PROVIDERS: PCP Family Medicine; Referring Provider Family Medicine; Visit Provider Student in an Organized Health Care Education/Training Program | DX: G56.02 Carpal tunnel syndrome, left upper limb (principal); G56.22 Lesion of ulnar nerve, left upper limb | CPT/HCPCS: 99214 ==

== ENCOUNTER 2025-01-15 00:24 | Outpatient (CLI) | payer MEDICARE, BC, SELFPAY ==
[2025-01-15 12:48] LABS: Anion Gap 8.4 mmol/L (3-11); BUN 23 mg/dL (7-18); CO2 28.6 mmol/L (21.0-32.0); CREATININE 1.4 mg/dL (0.70-1.30); Calcium 9.1 mg/dL (8.5-10.1); Chloride 108 mmol/L (98-107); Estimated GFR 50.49 (mL/min/1.73m2); Glucose 106 mg/dL (74-106); Potassium 4.4 mmol/L (3.5-5.1); Sodium 145 mmol/L (136-145)
== END 2025-01-15 00:25 | disposition home or self-care (01) ==
LOC: LOS 00:24
PROVIDERS: PCP Family Medicine; Visit Provider Family Medicine
DX: E11.9 Type 2 diabetes mellitus without complications (principal); N18.30 Chronic kidney disease, stage 3 unspecified
CPT/HCPCS: 36415; 80048

== ENCOUNTER 2025-01-18 10:35 | Outpatient (REF) | payer MEDICARE, BC, SELFPAY ==
[2025-01-18 12:46] LABS: COMMENT (LAB VIEW ONLY) 70.95 mg/dL; Microalb ug/mg Crea 9.7 ug/mg Cr
== END 2025-01-18 10:36 | disposition home or self-care (01) ==
LOC: LBN 10:35
PROVIDERS: PCP Family Medicine; Visit Provider Family Medicine
DX: E11.9 Type 2 diabetes mellitus without complications (principal); N18.30 Chronic kidney disease, stage 3 unspecified
CPT/HCPCS: 82043; 82570

== ENCOUNTER 2025-02-03 11:57 | Day surgery (SDC) | payer MEDICARE, BC, SELFPAY ==
[2025-02-03] VITALS (13 sets, daily range): BP systolic 118–150; BP diastolic 48–76; PULSE 63–78; RESP 11–26; TEMP 36.1–36.6; O2SAT 93–97; BMI 30.3
[2025-02-03] MEDS: Lactated Ringers 1,000 ML 80 ML IV (12:36)
--- NOTE | 2025-02-03 12:36 | W.PM.DSUDISC ---
Date of service: 02/03/25 Discharge Plan Disposition Patient Disposition: Home Condition: Good Discharge Details Reason For Visit: L cubital tunnel release; L ECTR Attending Provider: John Anderson Primary Care Provider: Jasmyne Castillo Home Meds and New Rx's Prescriptions: New hydrocodone-acetaminophen 5-325 mg tablet 1 tab PO Q6H PRN (Reason: pain) Qty: 6 0RF acetaminophen 500 mg tablet 500 mg PO TID Qty: 90 0RF ibuprofen 600 mg tablet 600 mg PO TID PRN (Reason: pain) Qty: 90 0RF Continued omeprazole 20 mg capsule,delayed release(DR/EC) 20 mg PO DAILY PRN cyanocobalamin (vitamin B-12) 1,000 mcg tablet 1,000 mcg PO DAILY lisinopril [Zestril] 10 mg tablet 10 mg PO HS ezetimibe [Zetia] 10 mg tablet 10 mg PO HS Discontinued ibuprofen 600 mg tablet 600 mg PO TID PRN (Reason: pain) Qty: 60 0RF Discharge Instructions Additional Instructions: Cubital Tunnel Decompression Discharge Instructions Activity: You should stay in the sling for the first 2 weeks. You may come out of the sling for gentle motion and hygiene but should largely remain in the sling to allow the incision site to heal. Gentle motion of the elbow, hand, wrist, and fingers is okay and encouraged after the first few days, but no repetitive activites nor heavy lifting. You may apply ice. Medications: - You should take Tylenol and Ibuprofen around the clock. - You have been prescribed Hydrocodone for breakthrough pain. Dressings: - The initial surgical dressing should stay in place for 3 days. It may then be removed and kept clean and dry. You should cover with a light gauze dressing. - You may shower after 3 days and get the wound wet. Follow-up: 10 days Stand Alone Forms: Monica Francis Tunnel Release Referrals: John Anderson MD [ [facility] STAFF PHYSICIAN] - Equipment/Supplies: Sling Activity:: Elevate Remove Dressings/Wound Care:: 72 hours Shower/Bathe:: 72 hours Diet:: As Tolerated Discharge Orders Discharge Orders: Discharge Order (Routine); Ordered 02/03/25 Ordered By: Ted Quiroga DS: Diagnosis Discharge Diagnosis (1) Cubital tunnel syndrome on left: Status: Acute (2) Left carpal tunnel syndrome: Status: Chronic
[2025-02-03] MEDS: Acetaminophen 500 MG TAB 1000 MG PO (12:37)
[2025-02-03] MEDS: Celecoxib 200 MG CAP 400 MG PO (12:37)
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
[2025-02-03] MEDS: ceFAZolin 2 GM/50 ML BAG IVPB (14:37)
[2025-02-03] MEDS: Lidocaine 1% Multi-Dose W/EPI 1/100,000 50 ML VIAL (15:28)
--- NOTE | 2025-02-03 16:59 | W.ANESPOSTOP ---
Postoperative Evaluation Date, Time and Location Date Performed: 02/03/25 Time Performed: 16:42 Patient Location: Day Surgery Unit Vital Signs Most Recent Imported Vital Signs: Most Recent Vital Signs Temp Pulse Resp BP Pulse Ox 36.3 C L 67 16 138/73 95 02/03/25 16:47 02/03/25 16:47 02/03/25 16:47 02/03/25 16:47 02/03/25 16:47 Pain Score Most Recent Pain Score: Most Recent Pain Score Pain Level 0 02/03/25 16:47 Assessment Mental Status: Awake (Alert & Oriented to Patient Baseline) Airway and Respiratory Function: Patent airway with normal (patient baseline) respiratory exam Cardiovascular Function: Hemodynamically Stable Hydration Status: Adequately Hydrated Nausea & Vomiting: No Nausea or Vomiting Pain: Pt. Denies Any Pain Peripheral Nerve Block: Patient did not receive a nerve block
--- NOTE | 2025-02-03 18:20 | W.PM.OP ---
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 Nonoperative treatment options had been trialed. Nerve conduction studies identified the carpal and cubital tunnel as the point of compression. Given failure of nonoperative treatments and persistent symptoms, I offered operative intervention. He did have successful cubital tunnel and carpal tunnel release on the right side. I reviewed the technical details of a carpal tunnel release and cubital tunnel decompression with possible anterior subcutaneous transposition. I reviewed the risk of the procedure to include bleeding, infection, pain, stiffness, nerve instability, damage to superficial nerves, persistent symptoms, and incomplete release. Despite these risks, the patient elected to proceed. Findings: The carpal tunnel was release with a standard endoscopic technique without difficulty and excellent visualization. There was a tightened cubital tunnel. The procedure was challenging given limited shoulder motion and thus majority of the elbow work was performed with the arm across the chest. The ulnar nerve was release from the first motor branch distally through the [place] proximally. Procedure Description: Frank was greeted in the preoperative holding area where the correct side was identified and marked. The consent was reviewed with the patient and signed. The history and physical was updated. All questions were answered. He was taken back to the operating room. The patient was placed into the supine position on the operating room table with the left arm on an arm board. A nonsterile tourniquet was placed high onto the arm, into the axilla. All bony prominences were well padded. Prophylactic antibiotics in the form of Cefazolin were administered. The right arm was then prepped with Chloraprep and draped in a standard fashion with stockinette and extremity drape. A timeout to confirm correct identity, side and site, procedure, allergies, anesthesia, and medical concerns was performed. The surgical site was marked in the volar wrist creases in line with the radial border of the fourth ray. This area was anesthetized with approximately 6cc of 1% Lidocaine with Epinephrine. The surgical site about the medial elbow was drawn on the skin just posterior to the medial epicondyle borders. The planned surgical field was anesthetized with 1% Lidocaine with Epinephrine. The limb was then exsanguinated with an Esmarch. Starting with the carpal tunnel, the skin was incised with a 15 blade, approximately 1cm. The skin only was cut and the deeper tissue was dissected bluntly with a tenotomy scissor, avoiding passing nerve and venous structures. The fascia was penetrated and opened bluntly. A two-prong skin hook was placed under this proximal fascial edge. A series of hamate finders were used to identify and dilate the carpal tunnel. Synovial elevator was used to free synovial attachments to the underside of the transverse carpal ligament. My thumb was kept in the palm to perfecto the distal extent of the carpal tunnel and correctly position the hand. The Microaire endoscope was inserted without difficulty and without resistance. Excellent visualization showed horizontally running fibers of the transverse carpal ligament (TCL). The distal extent of the TCL was visualized and the end of the scope palpated with the thumb. The blade was elevated and withdrawn from distal to proximal. The TCL was split into two flaps. The endoscope was reinserted to confirm complete release and any remnant ligament was incised. The scope was withdrawn and the proximal aspect of the carpal tunnel was grossly inspected and appeared release with the median nerve visible. The antebrachial fascia at the level of the wrist was then freed from the overlying skin and then the underlying median nerve with blunt dissection. This was transected longitudinally for about 3cm proximal to the wrist incision. The wound was then irrigated with easy flow of irrigant distally and proximally. The incision was closed with a single 4-0 Nylon suture. Attention was then turned to the cubital tunnel release. The skin of the medial elbow was incised only with the elbow in some flexion and on a bump. The deep tissue and subcutaneous fat was dissected with a tenotomy scissors trying to protect any branches of the medial antebrachial cutaneous nerve. Any branches that were identified were retracted out of the way. Visualization was challenging given limited elbow external rotation and abduction. Therefore before proceeding the nerve dissection I brought the arm over the chest, utilizing bumps and towels to keep the elbow flexed at about 60 degrees which improved her visualization of the cubital tunnel region. The ulnar nerve was palpated and identified. A small window into the cubital tunnel, sheath overlying the nerve, was created and the nerve was able to be palpated with the [place]. A Metzenbaum scissor was then used to open up the sheath starting with New's ligament. I then worked distal over the ulnar nerve releasing any constraints against the nerve all the way to the fascia of the FCU muscle belly. This muscle belly was bluntly all the way down to the first motor branch of the ulnar nerve and the overlying fascia was incised. Likewise starting there at the medial epicondyle, I proceeded to work proximally to release any constraints over the ulnar nerve. This was taken all the way to the arcade of [place]. The medial intermuscular septum was also palpated and any sharp edges against the ulnar nerve were resected and released. After fully releasing the nerve it was inspected visually. I was also able to palpate the nerve fully and reach one finger up into the proximal and distal aspects to make sure there were no constraints against the nerve. A freer elevator was also used to slide easily against the ulnar nerve without any points of constriction. The arm was then taken through range of motion. The ulnar nerve did not sublux/dislocate out of its groove behind the lateral epicondyle. Therefore, no transposition was performed. The tourniquet was then deflated. Any areas of bleeding were cauterized with bipolar electrocautery. The wound was thoroughly irrigated. The deep tissue was closed with a 3-0 Vicryl. The skin was closed with a 4-0 nylon. The wounds were dressed with Xeroform, 4 x 4's, ABD, Kerlix and an Danie wrap. Frank was placed into a sling. He was transferred back to the PACU in a stable condition. Date of Procedure: 02/03/25
== END 2025-02-03 17:09 | disposition home or self-care (01) ==
PROVIDERS: PCP Family Medicine; Visit Provider Student in an Organized Health Care Education/Training Program
PROC: 01N54ZZ Release Median Nerve, Percutaneous Endoscopic Approach (ICD-10-PCS; CPT 29848; principal; 2025-02-03 13:30)
PROC: (CPT 29848; 2025-02-03 13:30)
DX: G56.02 Carpal tunnel syndrome, left upper limb (principal); G56.22 Lesion of ulnar nerve, left upper limb
CPT/HCPCS: 29848; 64718; J0690; J1100; J2003; J2004; J2405; J2704

== ENCOUNTER → 2025-02-15 09:19 | Outpatient (BNVA) | payer MEDICARE, BC, SELFPAY | PROVIDERS: PCP Family Medicine; Referring Provider Family Medicine | DX: Z47.89 Encounter for other orthopedic aftercare (principal); R60.0 Localized edema | CPT/HCPCS: 99024 ==

== ENCOUNTER → 2025-02-25 09:30 | Outpatient (BNVA) | payer MEDICARE, BC, SELFPAY | PROVIDERS: PCP Family Medicine; Referring Provider Family Medicine; Visit Provider Physician Assistant | DX: Z47.89 Encounter for other orthopedic aftercare (principal); T81.89XA Other complications of procedures, not elsewhere classified, initial encounter | CPT/HCPCS: 99024 ==

== ENCOUNTER → 2025-03-01 10:38 | Outpatient (BNVA) | payer MEDICARE, BC, SELFPAY | PROVIDERS: PCP Family Medicine; Referring Provider Family Medicine; Visit Provider Student in an Organized Health Care Education/Training Program | DX: Z47.89 Encounter for other orthopedic aftercare (principal); T81.31XA Disruption of external operation (surgical) wound, not elsewhere classified, initial encounter | CPT/HCPCS: 99024 ==

== ENCOUNTER → 2025-03-08 10:13 | Outpatient (BNVA) | payer MEDICARE, BC, SELFPAY | PROVIDERS: PCP Family Medicine; Referring Provider Family Medicine; Visit Provider Student in an Organized Health Care Education/Training Program | DX: T81.31XD Disruption of external operation (surgical) wound, not elsewhere classified, subsequent encounter (principal); G56.22 Lesion of ulnar nerve, left upper limb; Z47.89 Encounter for other orthopedic aftercare | CPT/HCPCS: 99024 ==

== ENCOUNTER → 2025-03-25 09:36 | Outpatient (BNVA) | payer MEDICARE, BC, SELFPAY | PROVIDERS: PCP Family Medicine; Referring Provider Family Medicine; Visit Provider Physician Assistant | DX: T81.31XA Disruption of external operation (surgical) wound, not elsewhere classified, initial encounter (principal); G56.22 Lesion of ulnar nerve, left upper limb; M70.22 Olecranon bursitis, left elbow | CPT/HCPCS: 99024 ==

== ENCOUNTER 2025-06-25 00:27 | Outpatient (CLI) | payer MEDICARE, BC, SELFPAY ==
--- NOTE | 2025-06-25 06:30 | DI.US_ITS ---
APPROVED REPORT EXAM: Comprehensive 2D, Doppler, and color-flow Echocardiogram Patient Location: Out-Patient Electron Microscopist: Joann Wolfe RDCS (AE) Indications: Murmur, Lightheadedness Other Information Study Quality: Adequate Conclusion Normal left ventricular wall thickness and chamber size. Ejection fraction is 55 to 60%. Wall motion is normal Normal right ventricular size and function Both atria are normal in size The aortic valve is mildly sclerotic and trileaflet without stenosis or regurgitation Mild mitral annular calcification. Mild mitral regurgitation Estimated right ventricular systolic pressure is 31 mmHg Wall motion Left Ventricle The left ventricle is normal size. The left ventricular systolic function is normal. The left ventricular ejection fraction is within the normal range. There is normal left ventricular wall thickness. There is normal LV segmental wall motion. There is no ventricular septal defect visualized. LVEF is 55-60%. Right Ventricle The right ventricle is normal size. The right ventricular systolic function is normal. Atria The left atrium size is normal. The right atrium size is normal. The interatrial septum is intact with no evidence for an atrial septal defect. Aortic Valve The Aortic valve is mildly sclerotic. Aortic valve is trileaflet. There is no aortic valvular stenosis. No aortic regurgitation is present. Mitral Valve Mild mitral annular calcification. No evidence of mitral valve stenosis. Mild mitral regurgitation. Tricuspid Valve The tricuspid valve is normal in structure. There is no tricuspid valve stenosis. Trace tricuspid regurgitation. The RVSP is 30.7mmHg. Pulmonic Valve The pulmonary valve is normal in structure. There is no pulmonic valvular stenosis. Trace pulmonic regurgitation. Great Vessels The aortic root is normal in size. The ascending aorta is normal in size. Aortic arch is not well visualized. IVC is normal in size and collapses >50% with inspiration. Pericardium There is no pericardial effusion. 2D Dimensions IVSD d PLAX 0.93 cm M: 0.6-1.2 Ao Root d 2.72 cm M: 3.1 - 3.7 LVPW d PLAX 0.95 cm M: 0.6 - 1.2 Ao Asc Diam d 3.11 cm M: 2.6 - 3.4 LVID d PLAX 4.70 cm M: 4.2 - 5.8 LVDs 3.20 cm M: 2.5 - 4.0 LV EF Teichholz 60.1 % FS 31.99 % LV EDV (Teich) 100.3 mL LV ESV (Teich) 40.0 mL M-Mode TAPSE 1.86 cm (M/F) >1.7 Auto EF LV EDV A4C 144.5 mL LV EDV A2C 142.3 mL LV EDV BP 146.2 mL LV ESV A4C 65.2 mL LV ESV A2C 65.0 mL LV ESV BP 66.4 mL LVEF(%) A4C 54.9 % LVEF(%) A2C 54.3 % LVEF(%) BP 54.6 % LV SV A4C 79.3 ml LV SV A2C 77.3 ml LV SV BP 79.8 ml LV CO A4C 5.5 L/min LV CO A2C 5.3 L/min LV CO BP 5.4 L/min HR A4C 69.63 BPM HR A2C 68.83 BPM LV EDV Index (BP) LA Volume LA Length A4C 5.5 cm LA Length A2C 5.2 cm LA Area A4C s 20.33 cm2 LA Area A2C s 19.28 cm2 LA Vol A4C A-L 64.27 mL LA Vol A2C A-L 60.53 mL LA Vol Biplane A-L 63.8 mL LA Vol/BSA A4C A-L LA Vol/BSA A2C A-L LA Vol/BSA BP A-L 31.6 mL/m2 LA Vol A4C MOD 58.5 mL LA Vol A2C MOD 55.4 mL LA Vol BP MOD 58.0 mL RA Volume RA Area A4C 11.8 cm2 RA ESV A4C (A-L) 28.6mL RA Vol/BSA A4C A-L RA Length A4C 4.1 cm RA ESV A4C (MOD) 27.1mL LV Diastology MV E' medial 0.039 (>0.07 m/s) MV E Vmax 0.98 (0.4-1.3 m/s) MV E/E' MED 24.96 (<14) MV A Vmax 1.15 (0.4-1.3 m/s) MV E' lateral 0.056 (>0.1 m/s) E/A Ratio 0.9 MV E/E' LAT 17.42 (<14) MV E' Average 0.048 m/s MV E/E'(average) 20.52 Aortic Valve AoV Vmax 1.72 m/s LVOT Vmax 0.98 m/s AoV Peak Grad 11.8 mmHg LVOT Peak Grad 3.8 mmHg AoV Area (Vmax) 1.81 cm2 LVOT VTI 0.216 m AoV VTI 0.377 m LVOT Mean Grad 2.4 mmHg AoV Mean Kristofer. 1.24 m/s LVOT SV 69.01 mL AoV Mean Grad 6.9 mmHg LVOT Diam s 2.00 cm AoV Area (VTI) 1.83 cm2 AV Regurg Peak Gr. 11.81 mmHg Velocity Ratio 0.57 Mitral Valve MV DT 198 (160-240 msec) MV Vmax TIPS 1.18 m/s MV Mean Grad 2.1 (<2mmHg) MV VTI 0.369 m Pulmonary Valve PV Vmax 1.68 (0.5-1.5 m/s) RVOT Vmax 0.97 m/s PV Peak Grad 11.3 mmHg RVOT Peak Gr. 3.8 mmHg PV Mean Kristofer 0.99 m/s RVOT VTI 0.199 m PV Mean Grad 4.8 mmHg RVOT Mean Gr. 1.8 mmHg Tricuspid Valve RA Pressure 3.00 mmHg TR Vmax 2.63 m/s TV S' 0.10 m/s TR Peak Grad 27.7 mmHg RVSP (TR) 30.7 mmHg
== END 2025-06-25 00:47 ==
LOC: DI 00:27
PROVIDERS: PCP Family Medicine; Visit Provider Internal Medicine Cardiovascular Disease
DX: R01.1 Cardiac murmur, unspecified (principal)
CPT/HCPCS: 93306

== ENCOUNTER 2025-09-29 09:57 | Outpatient (CLI) | payer MEDICARE, BC, SELFPAY ==
[2025-09-29 15:44] LABS: Vitamin B12 912 pg/mL (211-911)
[2025-09-29 16:05] LABS: Anion Gap 9.3 mmol/L (3-11); BUN 20 mg/dL (9-23); CO2 26.7 mmol/L (20.0-31.0); Calcium 9.1 mg/dL (8.3-10.6); Chloride 106 mmol/L (98-107); Cholesterol 183 mg/dL (<200); Glucose 88 mg/dL (74-106); HDL Cholesterol 46 mg/dL (>40); Potassium 4.2 mmol/L (3.5-5.1); Sodium 142 mmol/L (136-145)
== END 2025-09-29 09:58 | disposition home or self-care (01) ==
PROVIDERS: PCP Family Medicine; Visit Provider Family Medicine
DX: Z13.6 Encounter for screening for cardiovascular disorders (principal); E78.2 Mixed hyperlipidemia; G62.9 Polyneuropathy, unspecified; I10 Essential (primary) hypertension
CPT/HCPCS: 36415; 80048; 80061; 82607